=== PATIENT | male | born 1980 | race Caucasian/White ===

== ENCOUNTER 2018-06-30 20:48 | Emergency (ER) | payer SELFPAY ==
[~2018-06-30] VITALS: Ht 180.3 cm; Wt 90.9 kg
[2018-06-30 21:47] LABS: URINE WBC 0 /hpf (0-3)
[2018-06-30 21:50] LABS: BASO # 0.1 (0.02-0.10); EOS # 0.4 (0.04-0.40); HEMATOCRIT 44.2 % (42.0-52.0); HEMOGLOBIN 15.4 g/dL (13.5-18.0); LYMPH# 1.6 (1.50-4.00); MEAN CELL VOLUME 95 fl (78-100); MEAN CORPUSCULAR HEMOGLOBIN 33 pg (27-31); MEAN CORPUSCULAR HGB CONC 35 g/dL (33-37); MEAN PLATELET VOLUME 8.1 fl (7.4-10.4); MONO # 0.5 (0.20-0.80); NEU # 3.3 (1.40-6.50); PLATELET COUNT 261 K/mm3 (130-400); RED BLOOD COUNT 4.64 M/mm3 (4.20-5.60); RED CELL DISTRIBUTION WIDTH 12.2 % (11.5-14.5); WHITE BLOOD COUNT 5.9 K/mm3 (4.8-10.8)
[2018-06-30 22:04] LABS: ALBUMIN 4.5 g/dL (3.5-5.0); POTASSIUM 3.7 mmol/L (3.6-5.0); TOTAL BILIRUBIN 0.4 mg/dL (0.2-1.3); TOTAL PROTEIN 7.1 g/dL (6.3-8.2)
[2018-06-30 22:04] LABS: URINE APPEARANCE CLEAR; URINE BILIRUBIN NEGATIVE (NEGATIVE); URINE BLOOD NEGATIVE (NEGATIVE); URINE COLOR YELLOW; URINE GLUCOSE NEGATIVE (NEGATIVE); URINE KETONE NEGATIVE (NEGATIVE); URINE LEUKOCYTE ESTERASE NEGATIVE (NEGATIVE); URINE NITRATE NEGATIVE (NEGATIVE); URINE PROTEIN(semi-quant) TRACE mg/dL (NEGATIVE); URINE UROBILINOGEN NORMAL (NORMAL)
[2018-06-30 22:27] LABS: D-DIMER 0.22 mg/L FEU (0.15-0.50)
[2018-07-01 00:36] VITALS: BP 152/84
== END 2018-07-01 00:36 | disposition home or self-care (01) ==
LOC: ED 20:48
PROVIDERS: Family Medicine
DX: R07.89 Other chest pain (principal); F17.210 Nicotine dependence, cigarettes, uncomplicated; Z87.81 Personal history of (healed) traumatic fracture

== ENCOUNTER 2023-06-21 21:13 | Emergency (ER) | payer SELFPAY ==
[~2023-06-21] VITALS: Wt 90.9 kg
[2023-06-21 23:16] VITALS: BP 158/110
== END 2023-06-21 23:16 | disposition home or self-care (01) ==
LOC: ED 21:13
DX: S61.214A Laceration without foreign body of right ring finger without damage to nail, initial encounter (principal); Z23 Encounter for immunization; W23.0XXA Caught, crushed, jammed, or pinched between moving objects, initial encounter
CPT/HCPCS: 90715